=== PATIENT | male | born 1990 | race African-American/Black ===

== ENCOUNTER 2016-11-09 20:15 | Inpatient (IN) | payer OTHER ==
[~2016-11-09] VITALS: Ht 167.6 cm; Wt 56.7 kg
[2016-11-09 20:37] VITALS: BP 140/68; PULSE 99; RESP 16; TEMP 97.5; O2SAT 99
--- NOTE | 2016-11-09 20:59 | PD ---
HPI Chief Complaint: Psychiatric Symptoms Time Seen by Provider: 21:02 Travel History International Travel<30 days: No Contact w/Intl Traveler<30days: No Traveled to known affect area: No History of Present Illness HPI Patient is a 26-year-old male presents the emergency department for evaluation under Felix act. According to the Felix act patient has a history of schizophrenia and has not been taking his medications for 2 months, has been having bizarre behavior. The patient is fairly paranoid on my assessment, she withdraws from any time I try to examine him, he refuses blood work stating that he's had too much blood taken out of him recently. He asks exactly how many cc go into each vial of blood. After explaining it to him he still declines. The patient denies any physical complaints but asked me "can you put in my chart that I'm not schizophrenic because she is lying". [facility] Past Medical History Immunizations Current: Yes Schizophrenia: Yes Past Surgical History Surgical History: No Previous Surgery Social History Alcohol Use: No Tobacco Use: Yes Substance Use: No Allergies-Medications (Allergen,Severity, Reaction): Coded Allergies: No Known Allergies (Verified Allergy, Unknown, 11/09/16) Reported Meds & Prescriptions Reported Meds & Active Scripts Active No Active Prescriptions or Reported Medications Review of Systems ROS Limitations: Psychotic Physical Exam Narrative GENERAL: Well-developed well-nourished, unkempt, smells of body odor. SKIN: Focused skin assessment warm/dry. HEAD: Atraumatic. Normocephalic. EYES: Pupils equal and round. No scleral icterus. No injection or drainage. ENT: No nasal bleeding or discharge. Mucous membranes pink and moist. NECK: Trachea midline. No JVD. CARDIOVASCULAR: Regular rate and rhythm. No murmur appreciated. RESPIRATORY: No accessory muscle use. Clear to auscultation. Breath sounds equal bilaterally. GASTROINTESTINAL: Abdomen soft, non-tender, nondistended. Hepatic and splenic margins not palpable. MUSCULOSKELETAL: No obvious deformities. No clubbing. No cyanosis. No edema. NEUROLOGICAL: Awake and alert. No obvious cranial nerve deficits. Motor grossly within normal limits. Normal speech. PSYCHIATRIC: With drawn and paranoid behavior, denies suicidal or homicidal ideation. Denies audiovisual hallucinations. Data Data Last Documented VS Vital Signs Date Time Temp Pulse Resp B/P (MAP) Pulse Ox O2 Delivery O2 Flow Rate FiO2 11/09/16 20:37 97.5 Orders Orders Complete Blood Count With Diff (11/09/16 20:30) Comprehensive Metabolic Panel (11/09/16 20:30) Psych Screen (11/09/16 20:30) Drug Screen, Random Urine (11/09/16 20:30) Alcohol (Ethanol) (11/09/16 20:30) MDM Medical Decision Making Medical Screen Exam Complete: Yes Emergency Medical Condition: Yes Differential Diagnosis Paranoid psychosis, drug-induced psychosis, schizophrenia. Narrative Course Patient is 26-year-old male presents emergency Department under Felix act, he is calm and cooperative though paranoid, he declines blood work at this time. As long as she remains calm and cooperative A do not have indication to sedate him for blood work. Therefore he is medically cleared for psychiatric evaluation. Diagnosis Primary Impression: Psychosis Scripts No Active Prescriptions or Reported Meds Condition: Kal Castillo MD Nov 09, 2016 20:58
[2016-11-09 22:28] VITALS: BP 103/74; PULSE 60; RESP 17; TEMP 97.4; O2SAT 99
[2016-11-09] MEDS ORDERED: ARIP1.6I IM (23:23)
[2016-11-10 00:15] VITALS: BP 107/73; PULSE 53; RESP 16; TEMP 97.3
[2016-11-10] MEDS ORDERED: diphenhydrAMINE HCL 50 MG CAP PO PRN (04:00)
[2016-11-10] MEDS ORDERED: diphenhydrAMINE HCL 50 MG/ML VIAL IM PRN (04:00)
[2016-11-10] MEDS ORDERED: MAGNESIUM HYDROXIDE SUSP 30 ML CUP PO PRN (04:00)
[2016-11-10] MEDS ORDERED: traZODone HCL 50 MG TAB PO PRN (04:00)
[2016-11-10] MEDS ORDERED: ACETAMINOPHEN 325 MG TAB PO PRN (04:00)
[2016-11-10] MEDS ORDERED: BENZTROPINE MESYLATE 2 MG/2 ML VIAL IM PRN (04:00)
[2016-11-10] MEDS ORDERED: LORazepam 2 MG/ML VIAL IM PRN (04:00)
[2016-11-10] MEDS ORDERED: BENZTROPINE MESYLATE 1 MG TAB PO PRN (04:00)
[2016-11-10] MEDS ORDERED: ALUMINUM/MAGNESIUM/SIMETH 30 ML CUP PO PRN (04:00)
[2016-11-10] MEDS ORDERED: diphenhydrAMINE HCL 50 MG/ML VIAL - HS PRN IM (04:00)
[2016-11-10] MEDS ORDERED: hydrOXYzine HCL 50 MG TAB PO PRN (04:00)
[2016-11-10 05:44] VITALS: BP 95/54; PULSE 50; RESP 16; TEMP 98.1; O2SAT 98
[2016-11-10] MEDS: NICOTINE 21 MG/24 HR PATCH T-DERMAL SCH (08:44)
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
[2016-11-10 15:49] VITALS: BP 90/47; PULSE 60; RESP 18; TEMP 97.4; O2SAT 100
[2016-11-10] MEDS: REMOVE OLD NICOTINE PATCH T-DERMAL SCH (21:00)
[2016-11-11 05:51] VITALS: BP 97/55; PULSE 51; RESP 18; TEMP 97.9; O2SAT 98
[2016-11-11] MEDS: NICOTINE 21 MG/24 HR PATCH T-DERMAL SCH (09:09)
--- NOTE | 2016-11-11 11:18 | HHI.PYPN ---
Subjective Remarks Patient seen and examined with counselor. Chart reviewed. Case discussed with nursing staff who reports that patient has been staring at staff in the nursing station in an off-putting manner and remains quite delusional. On my examination, patient is disheveled and malodorous. He is internally stimulated. He remains quite paranoid, and in particular is paranoid about the possibility of a blood draw. He rambles for some time about not wanting other people to have access to his blood. No SI/HI. Insight into mental illness and need for treatment very poor, and patient continues to refuse to discuss even the possibility of accepting meds. Following the interview, patient is quite intrusive, coming up to me during rounds and to the nurses' station trying to discuss his delusional themes. No physical complaints. I did reach the patient's mother this morning, and she provides consent to restrain the patient temporarily if needed to obtain lab work. She reports that Abilify Maintena helped but did not result in remission of symptoms. Review of Systems ROS Limitations: Psychotic, Poor Historian Except as stated in HPI: all other systems reviewed are Neg Objective Alert: Yes [place]: Person, Place Mood: Anxious Affect: Flat Memory Intact: Comment (Not formally assessed) Hallucinations: Auditory (internally stimulated) Delusions: Yes Delusion Type: Paranoid Suicidal: Ideation (no SI) Homicidal: Ideation (no HI) Insight/Judgment Poor Remarks No abnormal motor movements noted. Grooming and hygiene poor. Thought process perseverative on delusional themes. Labs Item Value Date Time White Blood Count 6.2 TH/MM3 11/11/16902 Hemoglobin 14.6 GM/DL 11/11/16902 Platelet Count 208 TH/MM3 11/11/16 09 Sodium Level 136 MEQ/L 11/11/16902 Potassium Level 4.1 MEQ/L 11/11/16902 Chloride Level 106 MEQ/L 11/11/16902 Carbon Dioxide Level 24.5 MEQ/L 11/11/16902 Blood Urea Nitrogen 15 MG/DL 11/11/16902 Creatinine 0.81 MG/DL 11/11/16902 Aspartate Amino Transf (AST/SGOT) 31 U/L 11/11/16902 Alanine Aminotransferase (ALT/SGPT) 19 U/L 11/11/16902 Alkaline Phosphatase 69 U/L 9/22/17 0903 Ethyl Alcohol Level LESS THAN 3 MG/DL 11/11/16 0903 Vitals/IOs Vital Signs Date Time Temp Pulse Resp B/P (MAP) Pulse Ox O2 Delivery O2 Flow Rate FiO2 11/11/16 05:51 97.9 51 18 97/55 (69) 98 11/09/16 22:28 Room Air Assessment & Plan Problem List: (1) Schizophrenia ICD Codes: F20.9 - Schizophrenia, unspecified (2) Noncompliance with medication regimen ICD Codes: Z91.14 - Patient's other noncompliance with medication regimen Assessment & Plan Labwork unremarkable besides mild, isolated hyperbilirubinemia. Given mother's report that Abilify was helpful but did not result in complete resolution of psychotic symptoms and given previous intolerance to paliperidone, I think it is reasonable to try a typical antipsychotic. Start Prolixin 5mg PO/2.5mg IM backup BID with plans to titrate to target psychotic symptoms. To consider Prolixin Decanoate. Check EKG to ensure QTc is not significantly prolonged. Cogentin available PRN EPS. Check bilirubin after weekend to ensure this is not worsening. Continue to monitor on high acuity unit. Continue other medications and care as ordered. Justification for Cont. Inpt. Medication changes and process. Impairment in reality construction. Impairment in self-care. High risk for decompensation in less restrictive environment. Discharge Planning Pending psychiatric stabilization Request HC Surrog/Guard Advoc?: Yes Problem Qualifiers (1) Schizophrenia: Qualified Codes: F20.0 - Paranoid schizophrenia Hamilton Christianson MD Nov 11, 2016 11:18
[2016-11-11 11:57] LABS: ANION GAP 6 MEQ/L (5-15); AST (GOT) 31 U/L (15-37); BICARBONATE 24.5 MEQ/L (21.0-32.0); BLOOD UREA NITROGEN 15 MG/DL (7-18); CHLORIDE 106 MEQ/L (98-107); GLOMERULAR FILTRATION RATE 142 ML/MIN (>89); POTASSIUM 4.1 MEQ/L (3.5-5.1); SODIUM (NA) 136 MEQ/L (136-145)
[2016-11-11 11:58] LABS: ALT (GPT) 19 U/L (12-78)
[2016-11-11 11:59] LABS: AUTOMATED NEUTROPHIL # 3.2 TH/MM3 (1.8-7.7); BASOPHIL % 0.6 % (0.0-2.0); EOSINOPHIL # 0.1 TH/MM3 (0-0.4); EOSINOPHIL % 1.9 % (0.0-4.0); HEMATOCRIT 44.2 % (39.0-51.0); HEMO FLAGS DIFF FINAL; LYMPH % 38.5 % (9.0-44.0); LYMPHOCYTE # 2.4 TH/MM3 (1.0-4.8); MEAN CELL VOLUME 87.2 FL (80.0-100.0); MEAN CORPUSCULAR HEMOGLOBIN 28.8 PG (27.0-34.0); PLATELET COUNT 208 TH/MM3 (150-450); RED BLOOD COUNT 5.07 MIL/MM3 (4.50-5.90); RED CELL DISTRIBUTION WIDTH 13.5 % (11.6-17.2); WHITE BLOOD COUNT 6.2 TH/MM3 (4.0-11.0)
[2016-11-11 12:00] LABS: ALKALINE PHOSPHATASE 69 U/L (45-117); LDL CHOLESTEROL 48 MG/DL (0-99); TOTAL BILIRUBIN ADULT 1.6 MG/DL (0.2-1.0)
[2016-11-11 12:06] LABS: ALCOHOL LESS THAN 3 MG/DL (0-5)
[2016-11-11] MEDS ORDERED: fluPHENAZine HCL 25 MG/10 ML VIAL IM PRN ×2 (13:45→14:15)
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
[2016-11-11 16:39] LABS: HEMOGLOBIN A1b 1.7 %; HEMOGLOBIN Ao 85.6 %; HEMOGLOBIN LA1C 1.7 %; HEMOGLOBIN P3 3.5 %
[2016-11-11 18:20] VITALS: BP 116/67; PULSE 54; RESP 19; TEMP 97.4; O2SAT 100
[2016-11-11] MEDS: LORazepam 1 MG TAB PO PRN (20:03)
[2016-11-11] MEDS: diphenhydrAMINE HCL 50 MG CAP - HS PRN PO (20:03)
[2016-11-11] MEDS: REMOVE OLD NICOTINE PATCH T-DERMAL SCH (20:47)
[2016-11-11 20:51] LABS: HEMOGLOBIN A1a 5.8 %
[2016-11-12 06:17] VITALS: BP 109/66; PULSE 64; RESP 16; TEMP 97.4; O2SAT 99
[2016-11-12] MEDS: REMOVE OLD NICOTINE PATCH T-DERMAL SCH (08:43)
[2016-11-12] MEDS: NICOTINE 21 MG/24 HR PATCH T-DERMAL SCH (08:43)
--- NOTE | 2016-11-12 12:40 | HHI.PYPN ---
Subjective Remarks Pt seen and discussed with staff. He has been cooperative with care and compliant with medications. He denies medication side effects. He is withdrawn and isolative to room. Hygiene is poor and he is quite disheveled and malodorous. He remains paranoid and approaches MD and RN repeatedly on rounds with paranoid ideations. No aggression. No SI/HI Objective Alert: Yes [place]: Person, Place Mood: Anxious Affect: Flat Memory Intact: Comment (fair) Hallucinations: Auditory (internally stimulated) Delusions: Yes Delusion Type: Paranoid Suicidal: Ideation (no SI) Homicidal: Ideation (no HI) Insight/Judgment poor Remarks malodorous Vitals/IOs Vital Signs Date Time Temp Pulse Resp B/P (MAP) Pulse Ox O2 Delivery O2 Flow Rate FiO2 11/12/16 06:17 97.4 64 16 109/66 (80) 99 11/09/16 22:28 Room Air Assessment & Plan Problem List: (1) Schizophrenia ICD Codes: F20.9 - Schizophrenia, unspecified (2) Noncompliance with medication regimen ICD Codes: Z91.14 - Patient's other noncompliance with medication regimen Assessment & Plan Continue current tx plan. Estimated LOS: days Justification for Cont. Inpt. impairments in reality testing and self care Request HC Surrog/Guard Advoc?: Yes Problem Qualifiers (1) Schizophrenia: Qualified Codes: F20.0 - Paranoid schizophrenia Heidy Sahu MD Nov 12, 2016 12:40
--- NOTE | 2016-11-12 16:30 | EKG ---
Date Performed: 11/11/2016 Time Performed: 16:49:16 PTAGE: 26 years EKG: SINUS BRADYCARDIA WITH SINUS ARRHYTHMIA SLIGHT ST CHANGE OF EARLY REPOLARIZATION NO PREVIOUS TRACING . BORDERLINE ECG NO PREVIOUS TRACING DOCTOR: Romain Alvarado Interpretating Date/Time 11/12/2016 16:29:34
[2016-11-12 18:00] VITALS: BP 110/61; PULSE 71; RESP 18; TEMP 97.9; O2SAT 99
[2016-11-12] MEDS: diphenhydrAMINE HCL 50 MG CAP - HS PRN PO (20:42)
[2016-11-12] MEDS: LORazepam 1 MG TAB PO PRN (21:38)
[2016-11-13 05:50] VITALS: BP 95/61; PULSE 64; RESP 16; TEMP 97.5; O2SAT 99
[2016-11-13] MEDS: NICOTINE 21 MG/24 HR PATCH T-DERMAL SCH (08:39)
[2016-11-13] MEDS: REMOVE OLD NICOTINE PATCH T-DERMAL SCH (08:40)
--- NOTE | 2016-11-13 13:17 | HHI.PYPN ---
Subjective Remarks Pt seen and discussed with staff. He has been less isolative and went out for fresh air. He showered and put on fresh clothes today but is still disheveled about his person. He asked RN if he could stop taking medications today, but was compliant with them. He went out for fresh air and laid on the ground. There is still some disorganization to thought process, but he is more engaged today. He denies side effects. NO SI/HI Objective Alert: Yes [place]: Person, Place Mood: Calm Affect: Flat Memory Intact: Comment (fair) Hallucinations: Auditory Delusions: Yes Delusion Type: Paranoid Suicidal: Ideation (no SI) Homicidal: Ideation (no HI) Insight/Judgment poor Vitals/IOs Vital Signs Date Time Temp Pulse Resp B/P (MAP) Pulse Ox O2 Delivery O2 Flow Rate FiO2 11/13/16 05:50 97.5 64 16 95/61 (72) 99 11/09/16 22:28 Room Air Assessment & Plan Problem List: (1) Schizophrenia ICD Codes: F20.9 - Schizophrenia, unspecified (2) Noncompliance with medication regimen ICD Codes: Z91.14 - Patient's other noncompliance with medication regimen Assessment & Plan Continue current tx plan. Estimated LOS: days Justification for Cont. Inpt. impairments in reality testing Request HC Surrog/Guard Advoc?: Yes Problem Qualifiers (1) Schizophrenia: Qualified Codes: F20.0 - Paranoid schizophrenia Heidy Sahu MD Nov 13, 2016 13:17
[2016-11-13 17:57] VITALS: BP 100/64; PULSE 59; RESP 16; TEMP 97.3; O2SAT 99
[2016-11-13] MEDS: diphenhydrAMINE HCL 50 MG CAP - HS PRN PO (21:20)
[2016-11-13] MEDS: LORazepam 1 MG TAB PO PRN (22:02)
[2016-11-14 05:51] VITALS: BP 109/57; PULSE 66; RESP 17; TEMP 98.3; O2SAT 100
[2016-11-14] MEDS: NICOTINE 21 MG/24 HR PATCH T-DERMAL SCH (09:00)
--- NOTE | 2016-11-14 09:31 | HHI.PYPN ---
Subjective Remarks Patient seen and examined with counselor and nurse. Chart reviewed. Case discussed with nursing staff. On my examination today, patient remains a little bit disorganized. He is quite superficial and vague on exam. He seems to be minimizing his psychiatric symptoms, and his insight is poor. He says "I don't think I have schizophrenia." Denies SI or HI. Denies AVH but remains a little internally preoccupied. Denies side effects from medications. No physical complaints. Review of Systems ROS Limitations: Psychotic, Poor Historian Except as stated in HPI: all other systems reviewed are Neg Objective Alert: Yes [place]: Person, Place (at least) Mood: Calm Affect: Other (some more affective reactivity noted.) Memory Intact: Comment (fair) Hallucinations: Auditory (remains somewhat internally preoccupied) Delusions: Yes Delusion Type: Paranoid Suicidal: Ideation (no SI) Homicidal: Ideation (no HI) Insight/Judgment Poor Remarks No hand tremor, no cogwheeling. No other motor abnormalities noted. Thought process somewhat vague and disorganized. Grooming and hygiene fair to poor at best. Labs Labs reviewed. No new labs. Bilirubin is pending. Vitals/IOs Vital Signs Date Time Temp Pulse Resp B/P (MAP) Pulse Ox O2 Delivery O2 Flow Rate FiO2 11/14/16 05:51 98.3 66 17 109/57 (74) 100 Assessment & Plan Problem List: (1) Schizophrenia ICD Codes: F20.9 - Schizophrenia, unspecified (2) Noncompliance with medication regimen ICD Codes: Z91.14 - Patient's other noncompliance with medication regimen Assessment & Plan Titrate Prolixin to 7.5 mg twice daily to target residual psychotic symptoms. Plan remains for long-acting injectable antipsychotic. Counselor to reach out the patient's mother to see if she can come visit the patient to assess his progress on the unit. Continue to monitor on the inpatient unit. Continue other medications and care as ordered. Justification for Cont. Inpt. Medication changes. Impairment in reality construction. High risk for decompensation and less restrictive environment. Discharge Planning Pending psychiatric stabilization. Possible placement although patient is resistant to this. Request HC Surrog/Guard Advoc?: Yes Problem Qualifiers (1) Schizophrenia: Qualified Codes: F20.0 - Paranoid schizophrenia Hamilton Christianson MD Nov 14, 2016 09:31
[2016-11-14 16:54] VITALS: BP 112/59; PULSE 58; RESP 18; TEMP 98; O2SAT 100
[2016-11-14] MEDS: diphenhydrAMINE HCL 50 MG CAP - HS PRN PO (21:20)
[2016-11-14] MEDS: LORazepam 1 MG TAB PO PRN (21:20)
[2016-11-15 06:12] VITALS: BP 99/55; PULSE 76; RESP 18; TEMP 98; O2SAT 100
--- NOTE | 2016-11-15 11:01 | PD.TTN ---
Patient Problems 1. Discharge planning 2. Medication compliance 3. Knowledge deficit 4. Lack of coping skills Progress Toward Goals Provider Present: Dr. Natalie Christianson Provider Input: Pt medication regiment will be adjusted including titration of Prolixin and possible implementation of long acting injection. Nurse(s) Present: Vandana Salazar RN Nurse(s) Input: Pt slept well and has been cooperative, appropriate as well as discharge focused. Psychiatric Counselors Present: MARLENY Mays Psych Therapist Input: Pt appears guarded, appropriate, organized, oriented and compliant with medication. Insight is improving some with regard to need to continue medication after discharge. He remains somewhat guarded about his symptoms and idea of going to an [facility]. No noted agitation or aggression. Pt appears to be able to utilize coping skills to regulate emotions as he has avoided any outbursts. Group Spec/RT/OT/HAWKINS Present: SHRUTHI Montanez Group Spec/RT/OT/HAWKINS Input: Pt attends very select groups and does not participate actively. Discharge Plan SMA It is the belief of the treatment team and the FACT team as well as pt family that he would benefit best from placement at an [facility] after discharge with ongoing follow up with FACT team. Documentation Scribe: MARLENY Mays Jonathan LMHC Nov 15, 2016 11:01
--- NOTE | 2016-11-15 11:22 | HHI.PYPN ---
Subjective Remarks Patient seen and examined with counselor and nurse. Chart reviewed. Case discussed in treatment team. On my examination today, the patient does seem to admit to some mental illness saying "I'm in the beginning stages of schizophrenia." However, his insight into the need for treatment remains poor. He does admit that the Prolixin is making him feel "happier than normal." He denies any audiovisual hallucinations. Thought and behavior remained very slightly disorganized, and the patient remains somewhat disheveled and malodorous. Denies side effects from medications. No physical complaints. He is resistant to assisted living placement. Review of Systems ROS Limitations: Psychotic, Poor Historian Except as stated in HPI: all other systems reviewed are Neg Objective Alert: Yes [place]: Person, Place Mood: Calm Affect: Other (childlike) Memory Intact: Comment (fair) Hallucinations: Other (denies AVH) Delusions: No Delusion Type: Other (no delusions) Suicidal: Ideation (no SI) Homicidal: Ideation (no HI) Insight/Judgment Poor Remarks No motor abnormalities noted. Labs Labs reviewed. Bilirubin decreased and direct bilirubin very mildly elevated, likely of no clinical significance. Vitals/IOs Vital Signs Date Time Temp Pulse Resp B/P (MAP) Pulse Ox O2 Delivery O2 Flow Rate FiO2 11/15/16 06:12 98.0 76 18 99/55 (70) 100 Assessment & Plan Problem List: (1) Schizophrenia ICD Codes: F20.9 - Schizophrenia, unspecified (2) Noncompliance with medication regimen ICD Codes: Z91.14 - Patient's other noncompliance with medication regimen Assessment & Plan Clinical features of patient's illness perhaps more consistent with disorganized or undifferentiated schizophrenia, and I have adjusted the diagnosis accordingly. Continue with oral Prolixin as ordered. Plan to initiate Prolixin Decanoate. Occupational therapy consult. Continue to monitor on the inpatient unit. Continue other medications and care as ordered. Justification for Cont. Inpt. Risk for decompensation and less restrictive environment. Discharge Planning Pending outcome of [place] court, possible placement Request HC Surrog/Guard Advoc?: Yes Problem Qualifiers (1) Schizophrenia: Qualified Codes: F20.3 - Undifferentiated schizophrenia Hamilton Christianson MD Nov 15, 2016 11:22
[2016-11-15 17:07] VITALS: BP 91/53; PULSE 78; RESP 18; TEMP 97.5
[2016-11-15] MEDS: LORazepam 1 MG TAB PO PRN (21:53)
[2016-11-15] MEDS: diphenhydrAMINE HCL 50 MG CAP - HS PRN PO (21:53)
[2016-11-16 06:13] VITALS: BP 93/51; PULSE 61; RESP 18; TEMP 97.6; O2SAT 100
--- NOTE | 2016-11-16 09:41 | HHI.PYPN ---
Subjective Remarks Patient seen and examined with counselor and nurse. Chart reviewed. Case discussed with nursing staff. On my examination today, patient presents as cooperative, if somewhat vague. He says that his plan is to return to living in a tent and getting his medications from his mother's house as she lives near his campsite. Denies any SI, HI or AVH. Denies side effects from medications and is agreeable to Prolixin Decanoate. No physical complaints. Review of Systems ROS Limitations: Poor Historian Except as stated in HPI: all other systems reviewed are Neg Objective Alert: Yes [place]: Person, Place Mood: Calm Affect: Blunted (childlike) Memory Intact: Comment (fair) Hallucinations: Other (Denies AVH) Delusions: No Delusion Type: Other (No delusions elicited) Suicidal: Ideation (Denies SI) Homicidal: Ideation (Denies HI) Insight/Judgment Poor Remarks No abnormal motor movements noted. Labs Labs reviewed. Vitals/IOs Vital Signs Date Time Temp Pulse Resp B/P (MAP) Pulse Ox O2 Delivery O2 Flow Rate FiO2 11/16/16 06:13 97.6 61 18 93/51 (65) 100 Assessment & Plan Problem List: (1) Schizophrenia ICD Codes: F20.9 - Schizophrenia, unspecified (2) Noncompliance with medication regimen ICD Codes: Z91.14 - Patient's other noncompliance with medication regimen Assessment & Plan Initiate Prolixin Decanoate 12.5 mg IM today. Supplement with ongoing oral Prolixin. Continue to monitor on the inpatient unit. Continue other medications and care as ordered. Justification for Cont. Inpt. Risk for decompensation in less restrictive environment. Discharge Planning Pending outcome of [place] court tomorrow. Request HC Surrog/Guard Advoc?: Yes Problem Qualifiers (1) Schizophrenia: Qualified Codes: F20.3 - Undifferentiated schizophrenia Hamilton Christianson MD Nov 16, 2016 09:41
[2016-11-16 17:44] VITALS: BP 110/60; PULSE 67; RESP 18; TEMP 97.7; O2SAT 98
[2016-11-16] MEDS: diphenhydrAMINE HCL 50 MG CAP - HS PRN PO (21:25)
[2016-11-17 06:14] VITALS: BP 97/49; PULSE 70; RESP 16; TEMP 97.8; O2SAT 97
--- NOTE | 2016-11-17 11:58 | HHI.PYPN ---
Subjective Remarks Patient seen and case discussed with nursing staff. Per nursing staff, the patient continues to respond to internal stimuli. For me today, patient remains a little internally stimulated. Patient's case presented to [place] court. Patient's outpatient SW with the FACT team present. He relates that the patient has not been feeding himself properly outside of the hospital, including eating chicken that is not properly cooked and throwing away other perfectly good groceries that were bought for him by the FACT team. Patient also reportedly told SW that he hoped he would be discharged today so that he could go eat snakes in the [place]. Review of Systems ROS Limitations: Poor Historian Objective Alert: Yes [place]: Person, Place Mood: Calm Affect: Blunted Memory Intact: Comment (not assessed) Hallucinations: Other (remains a little int stim) Delusions: No Delusion Type: Other (none voiced to me) Suicidal: Ideation (none voiced) Homicidal: Ideation (none voiced) Insight/Judgment Poor Remarks No abnormal motor movements noted. Labs Labs reviewed. Vitals/IOs Vital Signs Date Time Temp Pulse Resp B/P (MAP) Pulse Ox O2 Delivery O2 Flow Rate FiO2 11/17/16 06:14 97.8 70 16 97/49 (65) 97 Assessment & Plan Problem List: (1) Schizophrenia ICD Codes: F20.9 - Schizophrenia, unspecified (2) Noncompliance with medication regimen ICD Codes: Z91.14 - Patient's other noncompliance with medication regimen Assessment & Plan Continue oral Prolixin supplementing Prolixin Decanoate as ordered for now. Consider titrating oral Prolixin and administering further decanoate. Continue to monitor on the inpatient unit. Continue other medications and care as ordered. Patient's case was presented to the [facility], and the patient was retained on the unit by the directory clerk and his mother was appointed as his guardian advocate. Justification for Cont. Inpt. Risk for decompensation and less restrictive environment Discharge Planning Pending stabilization. Possible candidate for involuntary outpatient commitment program. Request HC Surrog/Guard Advoc?: Yes Problem Qualifiers (1) Schizophrenia: Qualified Codes: F20.3 - Undifferentiated schizophrenia Hamilton Christianson MD Nov 17, 2016 11:58
[2016-11-17 16:00] VITALS: BP 85/51; PULSE 66; RESP 18; TEMP 98.2; O2SAT 97
[2016-11-17] MEDS: diphenhydrAMINE HCL 50 MG CAP - HS PRN PO (21:37)
[2016-11-18 06:03] VITALS: BP 105/67; PULSE 62; RESP 18; TEMP 97.8; O2SAT 97
--- NOTE | 2016-11-18 11:58 | HHI.PYPN ---
Subjective Remarks Patient seen and examined. Chart reviewed. Case discussed with nursing staff. On my examination today, the patient says that he is "doing pretty good." He reports that he is sleeping well. Denies SI, HI or AVH. Affect is a little bit silly/giddy at times. Denies side effects from medications. No physical complaints. Review of Systems ROS Limitations: Poor Historian Except as stated in HPI: all other systems reviewed are Neg Objective Alert: Yes [place]: Person, Place Mood: Calm Affect: Blunted Memory Intact: Comment (not assessed) Hallucinations: Other (denies AVH) Delusions: No Delusion Type: Other (no delusions elicited) Suicidal: Ideation (denies SI) Homicidal: Ideation (denies HI) Insight/Judgment Poor Remarks No motor abnormalities noted. Grooming and hygiene remain fairly poor. Labs Labs reviewed. Vitals/IOs Vital Signs Date Time Temp Pulse Resp B/P (MAP) Pulse Ox O2 Delivery O2 Flow Rate FiO2 11/18/16 06:03 97.8 62 18 105/67 (80) 97 Assessment & Plan Problem List: (1) Schizophrenia ICD Codes: F20.9 - Schizophrenia, unspecified (2) Noncompliance with medication regimen ICD Codes: Z91.14 - Patient's other noncompliance with medication regimen Assessment & Plan Continue oral Prolixin as ordered supplementing Prolixin Decanoate. Patient will be next due for Prolixin Decanoate on 12/07, and we might consider increasing the dose to 25 mg at that time or administering another 12.5 mg dose early if the patient is due to be discharged before 12/07, with plans to titrate the dose when he receives his first post-discharge dose. Continue to monitor on the inpatient unit. Continue other medications and care as ordered. Justification for Cont. Inpt. High risk for decompensation in less restrictive environment Discharge Planning I checked with [facility] board of education secretary and outpatient psychiatrist Dr. Morris, unclear if patient has had another involuntary admission that would qualify him for involuntary outpatient program. Dr. Allred will check and get back to us Monday. If he qualifies, patient would be a good candidate for outpatient commitment program. Plan is for placement at [facility]. Request HC Surrog/Guard Advoc?: Yes Problem Qualifiers (1) Schizophrenia: Qualified Codes: F20.3 - Undifferentiated schizophrenia Hamilton Christianson MD Nov 18, 2016 11:58
[2016-11-18 17:57] VITALS: BP 105/56; PULSE 73; RESP 18; TEMP 97.4
[2016-11-19 06:07] VITALS: BP 107/54; PULSE 16; RESP 16; TEMP 98; O2SAT 98
--- NOTE | 2016-11-19 18:19 | HHI.PYPN ---
Subjective Remarks Patient was seen and case discussed with nursing. Per nursing, patient is behaving well on the unit. Patient is disheveled and blunted but no positive psychotic symptoms were elicited. Asking about discharge. Eating well on the unit. Tolerating medications well Objective Alert: Yes [place]: Person, Place Mood: Calm Affect: Restricted Memory Intact: Comment (not assessed) Hallucinations: Other (denies AVH) Delusions: No Delusion Type: Other (no delusions elicited) Suicidal: Ideation (denies SI) Homicidal: Ideation (denies HI) Insight/Judgment Poor Vitals/IOs Vital Signs Date Time Temp Pulse Resp B/P (MAP) Pulse Ox O2 Delivery O2 Flow Rate FiO2 11/19/16 06:07 98.0 16 16 107/54 (71) 98 Assessment & Plan Problem List: (1) Schizophrenia ICD Codes: F20.9 - Schizophrenia, unspecified (2) Noncompliance with medication regimen ICD Codes: Z91.14 - Patient's other noncompliance with medication regimen Assessment & Plan Continue current treatment plan Justification for Cont. Inpt. Patient would decompensate in a less restrictive setting Request HC Surrog/Guard Advoc?: Yes Problem Qualifiers (1) Schizophrenia: Qualified Codes: F20.3 - Undifferentiated schizophrenia Gianni Auguste DO Nov 19, 2016 18:19
[2016-11-19 18:26] VITALS: BP 116/61; PULSE 71; RESP 17; TEMP 98.2; O2SAT 99
[2016-11-20] MEDS: diphenhydrAMINE HCL 50 MG CAP - HS PRN PO ×2 (00:30→20:07)
[2016-11-20 05:59] VITALS: BP 126/72; PULSE 65; RESP 18; TEMP 98; O2SAT 99
--- NOTE | 2016-11-20 14:28 | HHI.PYPN ---
Subjective Remarks Patient was seen and case discussed with nursing. Patient is pleasant and cooperative with exam. Per nursing he is sleeping well and behaving well on the unit. He is once again interviewed on his mattress on the floor. He was sleeping well times. Affect is blunted and apathetic. No psychotic symptoms were elicited. Tolerating medications well Objective Alert: Yes [place]: Person, Place Mood: Calm Affect: Blunted Memory Intact: Comment (not assessed) Hallucinations: Other (denies AVH) Delusions: No Delusion Type: Other (no delusions elicited) Suicidal: Ideation (denies SI) Homicidal: Ideation (denies HI) Insight/Judgment Poor Vitals/IOs Vital Signs Date Time Temp Pulse Resp B/P (MAP) Pulse Ox O2 Delivery O2 Flow Rate FiO2 11/20/16 05:59 98.0 65 18 126/72 (90) 99 Assessment & Plan Problem List: (1) Schizophrenia ICD Codes: F20.9 - Schizophrenia, unspecified (2) Noncompliance with medication regimen ICD Codes: Z91.14 - Patient's other noncompliance with medication regimen Assessment & Plan Continue current treatment plan Justification for Cont. Inpt. Patient will decompensate in a less restrictive setting Request HC Surrog/Guard Advoc?: Yes Problem Qualifiers (1) Schizophrenia: Qualified Codes: F20.3 - Undifferentiated schizophrenia Gianni Auguste DO Nov 20, 2016 14:28
[2016-11-20 18:00] VITALS: BP 125/74; PULSE 67; RESP 18; TEMP 98.1; O2SAT 100
[2016-11-21 05:49] VITALS: BP 116/67; PULSE 73; RESP 16; TEMP 98.3; O2SAT 97
[2016-11-21 15:50] VITALS: BP 96/52; PULSE 71; RESP 18; TEMP 98.7; O2SAT 98
--- NOTE | 2016-11-21 17:58 | HHI.PYPN ---
Subjective Remarks Patient seen in [place] with nurse Teresita, chart reviewed, patient compliant medication. Patient now denies voices or visions denies suicidality states she is feeling better. Though he still has some confusion or reluctance to acknowledge referral to an [facility]. Consideration of referral to our involuntary outpatient treatment program. Continue to await word from the fact team Review of Systems Except as stated in HPI: all other systems reviewed are Neg Objective Alert: Yes [place]: Person, Place Mood: Calm Affect: Blunted Memory Intact: Comment (not assessed) Hallucinations: Other (denies AVH) Delusions: No Delusion Type: Other (no delusions elicited) Suicidal: Ideation (denies SI) Homicidal: Ideation (denies HI) Insight/Judgment Poor Vitals/IOs Vital Signs Date Time Temp Pulse Resp B/P (MAP) Pulse Ox O2 Delivery O2 Flow Rate FiO2 11/21/16 15:50 98.7 71 18 96/52 (67) 98 Assessment & Plan Problem List: (1) Schizophrenia ICD Codes: F20.9 - Schizophrenia, unspecified (2) Noncompliance with medication regimen ICD Codes: Z91.14 - Patient's other noncompliance with medication regimen Assessment & Plan Estimated LOS: days patient continues psychotic though it appears to be slowly resolving. Is still vigilant somewhat hostile and distracted. Compliant medication. For now continue treatment Justification for Cont. Inpt. At this time patient will decompensate with placed in a lower level of care Discharge Planning To be determined Request HC Surrog/Guard Advoc?: Yes Problem Qualifiers (1) Schizophrenia: Qualified Codes: F20.3 - Undifferentiated schizophrenia Cristiano Burnette MD Nov 21, 2016 17:58
[2016-11-21] MEDS: diphenhydrAMINE HCL 50 MG CAP - HS PRN PO (20:57)
[2016-11-22 06:06] VITALS: BP 114/64; PULSE 88; RESP 16; TEMP 98.5; O2SAT 97
[2016-11-22] MEDS ORDERED: Benztropine PO (09:27)
[2016-11-22] MEDS ORDERED: FLUP10TA PO (09:27)
[2016-11-22] MEDS ORDERED: [UNRECOGNIZED DRUG - CODE] IM ×2 (09:27→09:31)
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
== END 2016-11-22 13:05 | disposition home or self-care (01) | DRG 885 ==
LOC: NEPD 20:15 → NEDA 23:58 → H270 11-10 00:15
PROVIDERS: ADMIT Psychiatry & Neurology Psychiatry; ATTEND Psychiatry & Neurology Psychiatry
DX: F20.3 Undifferentiated schizophrenia (principal); R17 Unspecified jaundice; Z91.14 Patient's other noncompliance with medication regimen
CPT/HCPCS: 80053; 80061; 80307; 82247; 82248; 83036; 85025; 93005; 99285; J2680; Q0163